=== PATIENT | male | born 1965 | race American Indian/Alaskan Native ===

== ENCOUNTER 2017-10-04 10:22 | Inpatient (IN) | payer MEDICAID, OTHER ==
[2017-10-04 10:29] VITALS: BMI 26.9
--- NOTE | 2017-10-04 11:08 | ED PDOC ---
Arrival/HPI - General Chief Complaint: Seizure Time Seen by Provider: 10/04/17 10:28 Historian: Patient, Family (twin brother), EMS - History of Present Illness Narrative History of Present Illness (Text): 10/04/17 10:45 A 52 year old male, whose past medical history includes seizure disorder and COPD, presents to the emergency department s/p seizure witnessed by brother, duration 2 minutes. Patient reports last seizure episode was 3 months ago. Patient is uncertain what caused his seizure. Here in the ER, patient currently experiencing headache. Per EMS, patient's seizure was witnessed by brother, who stated episode lasted approximately 2 minutes. Patient denies any fever, cough, weakness/numbness, sensation of tongue bite, self-urination/defecation, or any other complaints. Also, patient denies taking any medications for seizure in the past or at this time. No PMD Past Medical History - Provider Review Nursing Documentation Reviewed: Yes - Pulmonary Hx Respiratory Disorders: Yes Hx Chronic Obstructive Pulmonary Disease (COPD): Yes - Neurological Hx Neurological Disorder: Yes Hx Seizures: Yes - Renal Hx Renal Disorder: No - Endocrine/Metabolic Hx Endocrine Disorders: No - Hematological/Oncological Hx Blood Disorders: No - Integumentary Hx Dermatological Disorder: No - Musculoskeletal/Rheumatological Hx Musculoskeletal Disorders: No - Gastrointestinal Hx Gastrointestinal Disorders: No - Genitourinary/Gynecological Hx Genitourinary Disorders: No - Psychiatric Hx Psychophysiologic Disorder: No Hx Substance Use: No - Anesthesia Hx Anesthesia: No Family/Social History - Physician Review Nursing Documentation Reviewed: Yes Family/Social History: No Known Family HX Smoking Status: Light Smoker < 10 Cigarettes Daily Hx Alcohol Use: No Hx Substance Use: No Allergies/Home Meds Allergies/Adverse Reactions: Allergies No Known Allergies Allergy (Verified 10/04/17 10:28) Home Medications: Home Meds Medication Instructions Recorded Confirmed No Known Home Med 10/04/17 10/04/17 Physical Exam Vital Signs Reviewed: Yes Vital Signs Temp Pulse Resp BP Pulse Ox 10/04/17 11:26 98.3 F 86 18 123/74 95 10/04/17 10:30 98.3 F 90 18 123/74 96 Temperature: Afebrile Blood Pressure: Normal Pulse: Regular Respiratory Rate: Normal Appearance: Positive for: Other (patient appears tired, but is arousable to voice.) Pain Distress: None Mental Status: Positive for: Alert and Oriented X 3 Finger Stick Blood Glucose: 180 - Systems Exam Head: Present: Atraumatic, Normocephalic Pupils: Present: PERRL Extroacular Muscles: Present: EOMI Conjunctiva: Present: Normal Mouth: Present: Moist Mucous Membranes, Normal Tounge Neck: Present: Normal Range of Motion Respiratory/Chest: Present: Clear to Auscultation, Good Air Exchange. No: Respiratory Distress, Accessory Muscle Use Cardiovascular: Present: Regular Rate and Rhythm, Normal S1, S2. No: Murmurs Abdomen: No: Tenderness, Distention, Peritoneal Signs Back: Present: Normal Inspection Upper Extremity: Present: Normal Inspection. No: Cyanosis, Edema Lower Extremity: Present: Normal Inspection. No: Edema Neurological: Present: GCS=15, CN II-XII Intact, Speech Normal, Motor Func Grossly Intact, Normal Sensory Function, Other (negative Brudinski, negative kernigs) Skin: Present: Warm, Dry, Normal Color. No: Rashes Psychiatric: Present: Alert, Oriented x 3, Normal Insight, Normal Concentration Medical Decision Making ED Course and Treatment: 10/04/17 10:50 Impression: 52 year old male with witnessed seizure episode, witnessed by his twin brother while at home. Physical exam shows patient appears tired but arousable to voice; neurological examination normal; no signs of incontinence; no signs of bite costa to tongue; no other acute findings on examination. Differential Diagnosis included but are not limited to: Seizure, h/o Seizure r/ o Electrolyte Abnormality r/o ICH Plan: -- EKG -- Head CT -- Labs -- Urinalysis -- Reassess and disposition Prior Visits: Notes and results from previous visits were reviewed. Patient was last seen in the emergency department on Progress Notes: EKG: Ordered, reviewed, and independently interpreted the EKG. Rate : 92 BPM Rhythm : NSR Interpretation : No ST-segment elevations or depressions, no T-wave inversions, normal intervals. Comparison : No previous EKG for comparison. 10/04/17 11:21 Patient is noted to have an elevated WBC. Currently in CT. Will place on isolation by Stefanie Navarrete for precautions. 10/04/17 11:43 Patient signed out to Dr. Marie to f/u CT, UA, and CXR reevaluate and disposition. - Lab Interpretations Lab Results: 10/04/17 10:44 10/04/17 10:44 Lab Results 10/04/17 10:55: POC Glucose (mg/dL) 180 H 10/04/17 10:44: PT 13.7 H, INR 1.19, APTT 29.9 10/04/17 10:44: Alcohol, Quantitative < 10 10/04/17 10:44: Sodium 140, Potassium 3.8, Chloride 99, Carbon Dioxide 21, Anion Gap 24 H, BUN 11, Creatinine 1.0, Est GFR ( Amer) > 60, Est GFR ( Non-Af Amer) > 60, Random Glucose 167 H, Calcium 9.9, Magnesium 2.1, Total Bilirubin 0.9, AST 37, ALT 28, Alkaline Phosphatase 114, Total Protein 8.7 H, Albumin 4.9 H, Globulin 3.8, Albumin/Globulin Ratio 1.3 10/04/17 10:44: WBC 29.3 H*, RBC 4.98, Hgb 14.4, Hct 43.4, MCV 87.1, MCH 28.9, MCHC 33.2, RDW 12.4, Plt Count 227, MPV 9.1, Gran % 94.0 H, Lymph % (Auto) 2.8 L , [place] % (Auto) 3.1, Eos % (Auto) 0.0 L, Baso % (Auto) 0.1, Gran # 27.54 H, Lymph # (Auto) 0.8 L, [place] # (Auto) 0.9 H, Eos # (Auto) 0.0, Baso # (Auto) 0.04 , Neutrophils % (Manual) Pending, Lymphocytes % (Manual) Pending, Monocytes % ( Manual) Pending - RAD Interpretation Radiology Orders: 10/04/17 10:45 HEAD W/O CONTRAST [CT] Stat - Scribe Statement The provider has reviewed the documentation as recorded by the Vanessa Feliciano Provider Scribe Attestation: All medical record entries made by the Scribe were at my direction and personally dictated by me. I have reviewed the chart and agree that the record accurately reflects my personal performance of the history, physical exam, medical decision making, and the department course for this patient. I have also personally directed, reviewed, and agree with the discharge instructions and disposition. Disposition/Present on Arrival - Present on Arrival Any Indicators Present on Arrival: No History of DVT/PE: No History of Uncontrolled Diabetes: No Urinary Catheter: No History of Decub. Ulcer: No History Surgical Site Infection Following: None - Disposition Have Diagnosis and Disposition been Completed?: No Diagnosis: Seizure Disposition Time: 11:45 Condition: FAIR Forms: [employer] (Greek)
[2017-10-04 11:10] LABS: BASO # 0.04 K/mm3 (0.0-2.0); BASO % 0.1 % (0.0-3.0); GRAN # 27.54 (1.4-6.5); HEMOGLOBIN 14.4 g/dL (14.0-18.0); LYMPH # 0.8 (1.2-3.4); LYMPH % 2.8 % (22.0-35.0); MEAN CELL VOLUME 87.1 fl (80.0-105.0); MEAN CORPUSCULAR HEMOGLOBIN 28.9 pg (25.0-35.0); MEAN CORPUSCULAR HGB CONC 33.2 g/dl (31.0-37.0); MEAN PLATELET VOLUME 9.1 fl (7.0-11.0); MONO # 0.9 (0.1-0.6); MONO % 3.1 % (1.0-6.0); PLATELET COUNT 227 10^3/uL (120.0-450.0); RBC 4.98 10^6/uL (3.5-6.1); RED CELL DISTRIBUTION WIDTH 12.4 % (11.5-14.5)
[2017-10-04 11:18] LABS: WHITE BLOOD COUNT 29.3 10^3/ul (4.5-11.0)
[2017-10-04 11:20] LABS: ALB/GLOB RATIO 1.3 (1.1-1.8); ALBUMIN 4.9 g/dL (3.0-4.8); ALT/SGPT 28 U/L (7-56); AST/SGOT 37 U/L (17-59); BLOOD UREA NITROGEN 11 mg/dL (7-21); CALCIUM 9.9 mg/dL (8.4-10.5); GFR NON-AFRICAN AMERICAN > 60
[2017-10-04 11:39] LABS: INR 1.19; PARTIAL THROMBOPLASTIN TIME 29.9 Seconds (25.1-36.5); PROTHROMBIN TIME 13.7 SECONDS (9.4-12.5)
--- NOTE | 2017-10-04 11:50 | ED PDOC ---
Physical Exam Vital Signs Temp Pulse Resp BP Pulse Ox 10/04/17 17:00 79 18 115/79 96 10/04/17 14:36 86 18 106/65 96 10/04/17 12:43 75 18 118/69 96 10/04/17 11:26 98.3 F 86 18 123/74 95 10/04/17 10:30 98.3 F 90 18 123/74 96 Finger Stick Blood Glucose: 180 Medical Decision Making ED Course and Treatment: 10/04/17 11:46 Patient endorsed to me by Dr. Petit. Patient is a 52 year old male, whose past medical history includes seizure disorder and chronic obstructive pulmonary disease, presents to the emergency department s/p seizure witnessed by brother, duration 2 minutes. 10/04/17 12:36 CXR reviewed with no acute intrathoracic abnormalities. Pending CTH. 10/04/17 13:09 Dictator: Edmond Peralta MD Procedure: Chest X-ray Impression: No active disease Dictator: Adi Quiroz MD Procedure: CT Head without contrast Impression: Unremarkable noncontrast CT of the Head. 10/04/17 14:[address] Boyd, who is aware and agrees with the Emergency Department management plan and requests patient be given 1000 mg of kepra IV, 500 mg BID, agrees with plan for Lumbar puncture and will consent patient. 10/04/17 15:55 Multiple attempts of CSF LP unsuccessful. Patient is intolerant of procedure. Anitbiotics have been ordered. Case discussed with Dr. Best who accepts patient unto her service. I will attempt to contact Dr. Haddad(radiology) for IR guided treatment. 10/04/17 16:[address] Bautista(anesthesiology) who requests Dr. Boyd(neurology) to attempt LP and directly request anesthesia services. Spoke to Dr. Fracisco Haddad who states that he doesn't perform LP guided treatments. Infomation relayed to Dr. Best. - Lab Interpretations Microbiology Results: Microbiology Results 10/04/17 15:40 Blood Blood Culture - Preliminary NO GROWTH AFTER 24 HOURS Lab Results: 10/04/17 10:44 10/04/17 10:44 Lab Results 10/04/17 13:00: Urine Opiates Screen Negative, Urine Methadone Screen Negative, Ur Barbiturates Screen Negative, Ur Phencyclidine Scrn Negative, Ur Amphetamines Screen Negative, U Benzodiazepines Scrn Negative, U Oth Cocaine Metabols Negative, U Cannabinoids Screen Positive H 10/04/17 13:00: Urine Color Yellow, Urine Appearance Clear, Urine pH 6.0, Ur Specific [place] >= 1.030, Urine Protein 100 H, Urine Glucose (UA) Negative, Urine Ketones Negative, Urine Blood Moderate H, Urine Nitrate Negative, Urine Bilirubin Negative, Urine Urobilinogen 0.2, Ur Leukocyte Esterase Negative, Urine RBC 1 - 3, Urine WBC 0 - 2, Ur Epithelial Cells 0 - 2, Urine Bacteria Few 10/04/17 10:55: POC Glucose (mg/dL) 180 H 10/04/17 10:44: PT 13.7 H, INR 1.19, APTT 29.9 10/04/17 10:44: Alcohol, Quantitative < 10 10/04/17 10:44: Sodium 140, Potassium 3.8, Chloride 99, Carbon Dioxide 21, Anion Gap 24 H, BUN 11, Creatinine 1.0, Est GFR ( Amer) > 60, Est GFR ( Non-Af Amer) > 60, Random Glucose 167 H, Calcium 9.9, Magnesium 2.1, Total Bilirubin 0.9, AST 37, ALT 28, Alkaline Phosphatase 114, Total Protein 8.7 H, Albumin 4.9 H, Globulin 3.8, Albumin/Globulin Ratio 1.3 10/04/17 10:44: WBC 29.3 H*, RBC 4.98, Hgb 14.4, Hct 43.4, MCV 87.1, MCH 28.9, MCHC 33.2, RDW 12.4, Plt Count 227, MPV 9.1, Gran % 94.0 H, Lymph % (Auto) 2.8 L , [place] % (Auto) 3.1, Eos % (Auto) 0.0 L, Baso % (Auto) 0.1, Gran # 27.54 H, Lymph # (Auto) 0.8 L, [place] # (Auto) 0.9 H, Eos # (Auto) 0.0, Baso # (Auto) 0.04 , Neutrophils % (Manual) 92 H, Band Neutrophils % 5 H, Lymphocytes % (Manual) 1 L, Monocytes % (Manual) 2, Platelet Evaluation Normal - RAD Interpretation Radiology Orders: 10/04/17 10:45 HEAD W/O CONTRAST [CT] Stat 10/04/17 11:59 CXR [CHEST PORTABLE] [RAD] Stat - Medication Orders Current Medication Orders: Discontinued Medications Acetaminophen (Tylenol 325mg Tab) 325 mg PO Q6H PRN PRN Reason: Fever >100.4 F Divalproex Sodium (Depakote Dr(*Bid*)) 500 mg PO BID GABY PRN Reason: Protocol Divalproex Sodium (Depakote Dr(*Bid*)) 1,000 mg PO ONCE ONE Stop: 10/05/17 13:38 Last Admin: 10/05/17 16:27 Dose: 1,000 mg Metoclopramide HCl 10 mg/ (Sodium Chloride) 52 mls @ 200 mls/hr IV STAT STA Stop: 10/04/17 13:49 Last Admin: 10/04/17 14:10 Dose: 200 mls/hr eMAR Start Stop Document 10/04/17 14:10 LA (Rec: 10/04/17 14:25 LA [id number]) Intravenous Solution Start Date 10/04/17 Start Time 14:25 End Date 10/04/17 End time 14:41 Total Infusion Time 16 Sodium Chloride (Sodium Chloride 0.9%) 1,000 mls @ 999 mls/hr IV .Q1H1M STA Stop: 10/04/17 14:34 Last Admin: 10/04/17 13:42 Dose: 999 mls/hr eMAR Start Stop Document 10/04/17 13:42 LA (Rec: 10/04/17 13:42 LA [id number]) Intravenous Solution Start Date 10/04/17 Start Time 13:42 End Date 10/04/17 End time 14:43 Total Infusion Time 61 Levetiracetam 1,000 mg/ Sodium (Chloride) 110 mls @ 440 mls/hr IV ONCE ONE Stop: 10/04/17 15:55 Last Admin: 10/04/17 16:13 Dose: 440 mls/hr eMAR Start Stop Document 10/04/17 16:13 LA (Rec: 10/04/17 16:14 LA [id number]) Intravenous Solution Start Date 10/04/17 Start Time 16:13 End Date 10/04/17 End time 16:28 Total Infusion Time 15 Ceftriaxone Sodium (Rocephin 2 Gm Ivpb) 2 gm in 100 mls @ 100 mls/hr IVPB STAT STA PRN Reason: Protocol Stop: 10/04/17 16:42 Last Admin: 10/04/17 16:37 Dose: 100 mls/hr eMAR Start Stop Document 10/04/17 16:37 LA (Rec: 10/04/17 16:45 LA [id number]) Intravenous Solution Start Date 10/04/17 Start Time 16:45 End Date 10/04/17 End time 17:45 Total Infusion Time 60 Sodium Chloride (Sodium Chloride 0.9%) 1,000 mls @ 999 mls/hr IV .Q1H1M STA Stop: 10/04/17 16:42 Last Admin: 10/04/17 17:30 Dose: 999 mls/hr eMAR Start Stop Document 10/04/17 17:30 LA (Rec: 10/04/17 17:30 LA [id number]) Intravenous Solution Start Date 10/04/17 Start Time 17:30 End Date 10/04/17 End time 18:31 Total Infusion Time 61 Vancomycin HCl (Vancomycin 1gm) 1 gm in 250 mls @ 167 mls/hr IVPB STAT STA PRN Reason: Protocol Stop: 10/04/17 17:13 Last Admin: 10/04/17 18:14 Dose: 167 mls/hr eMAR Start Stop Document 10/04/17 18:14 LA (Rec: 10/04/17 18:19 LA [id number]) Intravenous Solution Start Date 10/04/17 Start Time 18:19 End Date 10/04/17 End time 19:49 Total Infusion Time 90 Sodium Chloride (Sodium Chloride 0.9%) 1,000 mls @ 100 mls/hr IV .Q10H STA Stop: 10/05/17 03:32 Ceftriaxone Sodium (Rocephin 2 Gm Ivpb) 2 gm in 100 mls @ 100 mls/hr IVPB DAILY GABY PRN Reason: Protocol Last Admin: 10/05/17 09:32 Dose: 100 mls/hr eMAR Start Stop Document 10/05/17 09:32 MV (Rec: 10/05/17 09:33 MV [id number]) Intravenous Solution Start Date 10/05/17 Start Time 09:32 Vancomycin HCl (Vancomycin 1gm) 1 gm in 250 mls @ 167 mls/hr IVPB Q12H GABY PRN Reason: Protocol Last Admin: 10/05/17 09:32 Dose: 167 mls/hr eMAR Start Stop Document 10/05/17 09:32 MV (Rec: 10/05/17 09:32 MV [id number]) Intravenous Solution Start Date 10/05/17 Start Time 09:32 Levetiracetam (Keppra) 500 mg PO BID GABY Levetiracetam (Keppra) 500 mg PO BID GABY Last Admin: 10/05/17 09:32 Dose: 500 mg Pantoprazole Sodium (Protonix Ec Tab) 40 mg PO 0600 GABY Last Admin: 10/05/17 06:05 Dose: 40 mg Pneumococcal Polyvalent Vaccine (Pneumovax 23 Vaccine) 0.5 ml IM .ONCE ONE Stop: 10/04/17 21:40 - Scribe Statement The provider has reviewed the documentation as recorded by the Vanessa Geller All medical record entries made by the Arnolibchelo were at my direction and personally dictated by me. I have reviewed the chart and agree that the record accurately reflects my personal performance of the history, physical exam, medical decision making, and the department course for this patient. I have also personally directed, reviewed, and agree with the discharge instructions and disposition. Disposition/Present on Arrival - Present on Arrival Any Indicators Present on Arrival: No History of DVT/PE: No History of Uncontrolled Diabetes: No Urinary Catheter: No History of Decub. Ulcer: No History Surgical Site Infection Following: None - Disposition Have Diagnosis and Disposition been Completed?: No Diagnosis: Seizure, Leukocytosis Disposition: HOSPITALIZED Disposition Time: 15:55 Isolation: Contact, Airborne Patient Plan: Admission Condition: FAIR
[2017-10-04 11:57] LABS: BAND 5 % (0-2); LYMPHOCYTE 1 % (22.0-35.0); MONOCYTE 2 % (1.0-6.0); NEUTROPHIL 92 % (50.0-70.0); PLATELET ESTIMATE NORMAL (NORMAL)
--- NOTE | 2017-10-04 12:29 | RAD ---
Date of service: 10/04/2017 HISTORY: seizure COMPARISON: No prior. FINDINGS: LUNGS: No active pulmonary disease. PLEURA: No significant pleural effusion identified, no pneumothorax apparent. CARDIOVASCULAR: Mild cardiomegaly OSSEOUS STRUCTURES: No significant abnormalities. VISUALIZED UPPER ABDOMEN: Normal. OTHER FINDINGS: None. IMPRESSION: No active disease.
--- NOTE | 2017-10-04 12:57 | CT ---
Date of service: 10/04/2017 PROCEDURE: CT HEAD WITHOUT CONTRAST. HISTORY: seizure COMPARISON: None available. TECHNIQUE: Axial computed tomography images were obtained through the head/brain without intravenous contrast. Radiation dose: Total exam DLP = 945.47 mGy-cm. This CT exam was performed using one or more of the following dose reduction techniques: Automated exposure control, adjustment of the mA and/or kV according to patient size, and/or use of iterative reconstruction technique. FINDINGS: Limitations: Motion artifaced exam. The patient was recalled for added imaging insert into the initial series performed. HEMORRHAGE: No intracranial hemorrhage. BRAIN: Normal quach-white matter differentiation and density are appreciated throughout the cerebrum and cerebellum with the brainstem appearing unremarkable as well. There is no mass effect. There is no suspicious extra-axial fluid collection and the midline brain anatomy appears diffusely unremarkable. VENTRICLES: Unremarkable. No hydrocephalus. CALVARIUM: No destructive bony lesion or displaced fracture identified including through the skullbase. PARANASAL SINUSES: Unremarkable as visualized. No significant inflammatory changes. MASTOID AIR CELLS: Unremarkable as visualized. No inflammatory changes. OTHER FINDINGS: Note is made of a midline parieto-occipital scalp lipoma measuring 4.7 x 1.5 x 4.5 cm. IMPRESSION: Unremarkable noncontrast CT of the Head.
[2017-10-04 13:26] LABS: URINE BILIRUBIN NEGATIVE (NEGATIVE); URINE BLOOD MODERATE (NEGATIVE); URINE GLUCOSE (UA) NEGATIVE (NEGATIVE); URINE LEUKOCYTE ESTERASE NEGATIVE Leu/uL (NEGATIVE); URINE PROTEIN 100 mg/dL (<30 mg/dL); URINE UROBILINOGEN 0.2 E.U./dL (<1 E.U./dL)
[2017-10-04 13:28] LABS: URINE APPEARANCE CLEAR (CLEAR); URINE COLOR YELLOW (YELLOW)
[2017-10-04] MEDS ORDERED: Sodium Chloride 0.9% 1,000 ML IV STA ×3 (13:34→17:33)
[2017-10-04 13:44] LABS: URINE BACTERIA FEW (NEG); URINE EPITHELIAL CELLS 0 - 2 /hpf (0-5); URINE WBC 0 - 2 /hpf (0-6)
[2017-10-04 13:49] LABS: BARBITURATES, UR NEGATIVE (NEGATIVE); BENZODIAZEPINES, UR NEGATIVE (NEGATIVE); OPIATES, UR NEGATIVE (NEGATIVE); PHENCYCLIDINE, UR NEGATIVE (NEGATIVE)
[2017-10-04] MEDS ORDERED: Lidocaine Hydrochloride 1% 10 ML ONE (15:16)
[2017-10-04] MEDS ORDERED: levETIRAcetam 1,000 MG in Sodium Chloride 0.9% 100 ML IV ONE (15:41)
[2017-10-04] MEDS ORDERED: cefTRIAXone 2 GM IN NS 2 GM/100 ML BAG IVPB STA (15:43)
[2017-10-04] MEDS ORDERED: Vancomycin 1gm in NS 250ml 1 GM/250 ML BAG IVPB STA (15:44)
--- NOTE | 2017-10-04 17:41 | CP.PCM.HP ---
History of Present Illness - History of Present Illness History of Present Illness: Corey Ford D.O PGY-1, Internal Medicine H & P for Dr. Best CC: Headache and dizziness HPI: Patient is a 52 year old male with past medical history of seizure disorder ( not on medication), HTN, and COPD presenting to the emergency department with headache and dizziness. Patient states that he woke up this morning with a headache and also feeling more tired than usual. Patient remembers taking 2 Tylenol pills for his headache this morning but later woke up in the ambulance. Patient cannot recall what happened before waking up in the ambulance. Patient was diagnosed with seizure disorder last year and was given medications but never took them. His last seizure episode was 3 months ago. As per ED note, patient's brother witness his seizure episode that lasted for 2 minutes. Patient denies any fever, cough, weakness/numbness, sensation of tongue bite, self-urination/defecation, recent travels, any sick contacts, chest pain, shortness of breath, abdominal pain, or urinary symptoms. In ED: was given IV Keppra and IV Ceftriaxone 12 point ROS negative except as indicated in HPI Past medical history: HTN, COPD, seizures (not on medication) Surgical History: denies Allergies: NKDA Social History: Denies alcohol and drug use. Smokes 7 cigarettes per day for 7 years, smokes marijuana occasionally. 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 Family History: Mother- HTN, Father- does not know Medications: Amlodipine PMD: none Neurologist: Cannot recall Pharmacy: patient states [facility] (called and no patient name at this pharmacy) Present on Admission - Present on Admission Any Indicators Present on Admission: No History of DVT/PE: No History of Uncontrolled Diabetes: No Urinary Catheter: No Decubitus Ulcer Present: No Past Patient History - Past Social History Smoking Status: Light Smoker < 10 Cigarettes Daily - PULMONARY Hx Respiratory Disorders: Yes Hx Chronic Obstructive Pulmonary Disease (COPD): Yes - NEUROLOGICAL Hx Neurological Disorder: Yes Hx Seizures: Yes - RENAL Hx Chronic Kidney Disease: No - ENDOCRINE/METABOLIC Hx Endocrine Disorders: No - HEMATOLOGICAL/ONCOLOGICAL Hx Blood Disorders: No - INTEGUMENTARY Hx Dermatological Problems: No - MUSCULOSKELETAL/RHEUMATOLOGICAL Hx Musculoskeletal Disorders: No - GASTROINTESTINAL Hx Gastrointestinal Disorders: No - GENITOURINARY/GYNECOLOGICAL Hx Genitourinary Disorders: No - PSYCHIATRIC Hx Psychophysiologic Disorder: No Hx Substance Use: No - SURGICAL HISTORY Hx Surgeries: No - ANESTHESIA Hx Anesthesia: No Meds Allergies/Adverse Reactions: Allergies Allergy/AdvReac Type Severity Reaction Status Date / Time No Known Allergies Allergy Verified 10/04/17 18:14 Physical Exam - Constitutional Appears: No Acute Distress Additional comments: Appears Lethargic - Head Exam Head Exam: ATRAUMATIC Additional comments: Lipoma present in the posterior of the head - Eye Exam Eye Exam: Normal appearance, PERRL. absent: Scleral icterus - ENT Exam ENT Exam: Mucous Membranes Moist - Neck Exam Neck exam: Positive for: Full Rom, Normal Inspection. Negative for: Tenderness - Respiratory Exam Respiratory Exam: Clear to Auscultation Bilateral. absent: Rales, Rhonchi, Wheezes, Respiratory Distress, Stridor - Cardiovascular Exam Cardiovascular Exam: REGULAR RHYTHM, +S1, +S2. absent: Gallop, Rubs, Systolic Murmur - GI/Abdominal Exam GI & Abdominal Exam: Normal Bowel Sounds, Soft. absent: Guarding, Tenderness - Extremities Exam Extremities exam: Positive for: full ROM, normal inspection. Negative for: calf tenderness, joint swelling, pedal edema - Neurological Exam Neurological exam: Alert, CN II-XII Intact, Normal Gait, Oriented x3, Reflexes Normal Additional comments: Speech normal, negative Brudinski, negative kernigs, no focal neurological deficits. Muscle strength 5/5 and sensations intact on bilateral upper and lower extremities. - Psychiatric Exam Psychiatric exam: Normal Affect, Normal Mood - Skin Skin Exam: Dry, Intact, Normal Color, Warm Results - Vital Signs Recent Vital Signs: Last Vital Signs Temp 98.3 F 10/04/17 11:26 Pulse 79 10/04/17 17:00 Resp 18 10/04/17 17:00 BP 115/79 10/04/17 17:00 Pulse Ox 96 10/04/17 17:00 - Labs Result Diagrams: 10/04/17 10:44 10/04/17 10:44 Assessment & Plan - Assessment and Plan (Free Text) Assessment: chris is a 52 year old male with past medical history of seizure disorder (not on medication), HTN, and COPD presenting to the emergency department with headache and dizziness. Plan: Headache and dizziness - Most likely due to post-ictal state 2/2 a seizure episode, need to rule out acute meningitis - WBC: 29.3 - Neutrophils manual count: 94%, Bands: 5%, Neutrophils: 27,540 - CT head: unremarkable - Patient is afebrile - Patient is on airborne precautions - Neurology consulted, Dr. Boyd - ID consulted, Dr. Feldman - EKG: NSR - CXR: no active disease - [employer], ERP, HIV, Procalcitonin ordered - Blood and urine cultures ordered - Started Keppra 500mg PO BID - Started Tylenol PRN - fevers - IVF fluids: NS @ 100mLs/hour - Fall and seizure protocols - Negative Brudinski's sign, negative Kernig sign History of hypertension - On Amlodipine at home - Hold home antihypertensive medication at this time DVT/GI prophylaxis: SCD's and protonix Patient case reviewed with and plan approved by attending physician, Dr. Best
[2017-10-04] MEDS ORDERED: levETIRAcetam Solution 100 MG/ML BOTTLE PO SCH (18:00)
[2017-10-04] MEDS: levETIRAcetam 500 mg/5ml UD cups PO SCH (18:21)
--- NOTE | 2017-10-04 19:08 | CARD ---
APPROVED REPORT Date of service: 10/04/2017 EKG Measurement Heart [id number] <Conclusion> Normal sinus rhythm Normal ECG
[2017-10-04] MEDS ORDERED: Pneumococcal 23-Valent Vaccine IM ONE (21:39)
[2017-10-05 00:28] VITALS: RESP 20
[2017-10-05] MEDS: Vancomycin 1gm in NS 250ml 1 GM/250 ML BAG IVPB SCH ×2 (02:24→09:32)
[2017-10-05] MEDS ORDERED: Pantoprazole 40 mg EC Tab PO SCH (06:00)
[2017-10-05 06:46] LABS: ALB/GLOB RATIO 1.1 (1.1-1.8); ALBUMIN 3.6 g/dL (3.0-4.8); ALT/SGPT 38 U/L (7-56); AST/SGOT 39 U/L (17-59); BLOOD UREA NITROGEN 9 mg/dL (7-21); CALCIUM 8.5 mg/dL (8.4-10.5); GFR NON-AFRICAN AMERICAN > 60
[2017-10-05 06:48] LABS: BASO # 0.03 K/mm3 (0.0-2.0); BASO % 0.2 % (0.0-3.0); EOS # 0.1 (0.0-0.7); EOS % 0.5 % (1.5-5.0); GRAN # 14.72 (1.4-6.5); GRAN % 89.8 % (50.0-68.0); HEMOGLOBIN 12.1 g/dL (14.0-18.0); LYMPH # 0.8 (1.2-3.4); LYMPH % 4.6 % (22.0-35.0); MEAN CELL VOLUME 86.1 fl (80.0-105.0); MEAN CORPUSCULAR HEMOGLOBIN 27.9 pg (25.0-35.0); MEAN CORPUSCULAR HGB CONC 32.4 g/dl (31.0-37.0); MEAN PLATELET VOLUME 9.1 fl (7.0-11.0); MONO # 0.8 (0.1-0.6); MONO % 4.9 % (1.0-6.0); RBC 4.33 10^6/uL (3.5-6.1); RED CELL DISTRIBUTION WIDTH 12.4 % (11.5-14.5); WHITE BLOOD COUNT 16.4 10^3/ul (4.5-11.0)
[2017-10-05] MEDS: levETIRAcetam 500 mg/5ml UD cups PO SCH (09:32)
[2017-10-05] MEDS ORDERED: cefTRIAXone 2 GM IN NS 2 GM/100 ML BAG IVPB SCH (10:00)
--- NOTE | 2017-10-05 11:48 | CP.PCM.PN ---
Subjective - Date & Time of Evaluation Date of Evaluation: 10/05/17 Time of Evaluation: 07:00 - Subjective Subjective: Internal Medicine Progress Note for Dr. Estephania Agarwal PGY1 52M seen and evaluated at bedside this morning. No acute events overnight. Patient states symptoms of leg heaviness and headache have now resolved. Tolerating his diet and no difficulty with ambulation. He denies any dizziness, confusion, fever, chills, shortness of breath, chest pain, palpitations, nausea , vomiting, diarrhea, or abdominal pain. Objective - Vital Signs/Intake and Output Vital Signs (last 24 hours): Temp Pulse Resp BP Pulse Ox 99.0 F 81 20 126/82 96 10/05/17 07:15 10/05/17 07:15 10/05/17 07:15 10/05/17 07:15 10/05/17 07:15 Intake and Output: 10/05/17 10/05/17 06:59 18:59 Intake Total 1270 Balance 1270 - Medications Medications: Current Medications Acetaminophen (Tylenol 325mg Tab) 325 mg PO Q6H PRN PRN Reason: Fever >100.4 F Ceftriaxone Sodium (Rocephin 2 Gm Ivpb) 2 gm in 100 mls @ 100 mls/hr IVPB DAILY GABY PRN Reason: Protocol Last Admin: 10/05/17 09:32 Dose: 100 mls/hr Vancomycin HCl (Vancomycin 1gm) 1 gm in 250 mls @ 167 mls/hr IVPB Q12H GABY PRN Reason: Protocol Last Admin: 10/05/17 09:32 Dose: 167 mls/hr Levetiracetam (Keppra) 500 mg PO BID [facility] Last Admin: 10/05/17 09:32 Dose: 500 mg Pantoprazole Sodium (Protonix Ec Tab) 40 mg PO 0600 G[facility] Last Admin: 10/05/17 06:05 Dose: 40 mg - Labs Labs: 10/05/17 05:45 10/05/17 05:30 PT 13.7 SECONDS (9.4-12.5) H 10/04/17 10:44 INR 1.19 10/04/17 10:44 APTT 29.9 Seconds (25.1-36.5) 10/04/17 10:44 - Constitutional Appears: Well, Non-toxic, No Acute Distress - Head Exam Head Exam: ATRAUMATIC, NORMAL INSPECTION, NORMOCEPHALIC - Eye Exam Eye Exam: EOMI Pupil Exam: PERRL - ENT Exam ENT Exam: Mucous Membranes Moist - Respiratory Exam Respiratory Exam: Clear to Ausculation Bilateral, NORMAL BREATHING PATTERN - Cardiovascular Exam Cardiovascular Exam: REGULAR RHYTHM, +S1, +S2. absent: Murmur - GI/Abdominal Exam GI & Abdominal Exam: Soft, Normal Bowel Sounds. absent: Tenderness - Extremities Exam Extremities Exam: absent: Calf Tenderness, Pedal Edema, Tenderness - Neurological Exam Neurological Exam: Alert, Awake, CN II-XII Intact, Normal Gait, Oriented x3 Neuro motor strength exam: Left Upper Extremity: 5, Right Upper Extremity: 5, Left Lower Extremity: 5, Right Lower Extremity: 5 - Psychiatric Exam Psychiatric exam: Normal Affect, Normal Mood - Skin Skin Exam: Dry, Intact, Normal Color, Warm Assessment and Plan - Assessment and Plan (Free Text) Assessment: 52M, with a past medical history of seizure disorder (not currently taking medications), hypertension, and COPD, presented s/p seizure witnessed by brother in law. Plan: 1. Headache and dizziness - likely secondary to a post-ictal state vs. meningitis - Pt has history of seizures and has not been taking medication - Start Depakote, discontinue Keppra 500mg BID - Continue Vancomycin 1gm Q12H, Rocephin 2gm - UA positive for cannabinoids which lowers seizure threshold - droplet precautions - fall precautions - seizure precautions - CT head negative - CT head w/ contrast: normal - f/u blood, urine cultures - f/u HIV, VDRL, and cryptococcus studies - Neurology, Dr. Boyd consulted, recommendations appreciated - ID, Dr. Prado consulted, recommendations appreciated 2. Hx of HTN - Home medication amlodipine on hold, patient is currently normotensive - Continue to monitor 3. Hx of Substance Abuse - UA positive for cannabinoids - Encouraged cessation especially with seizure disorder as this lowers threshold for seizures GI: Protonix DVT: SCDs Diet: HHD Case reviewed and discussed with Dr. Estephania Agarwal PGY1
[2017-10-05] MEDS ORDERED: Iohexol 350 MG/100 ML VIAL ONE (12:40)
[2017-10-05] MEDS ORDERED: Divalproex 500 mg DR(BID formulation) PO ONE (13:37)
--- NOTE | 2017-10-05 13:55 | CT ---
Date of service: 10/05/2017 PROCEDURE: CT HEAD WITH CONTRAST HISTORY: rule out mass COMPARISON: None available. TECHNIQUE: Axial computed tomography images were obtained through the head/brain with intravenous contrast. Contrast dose: 100 cc of Omni 350 Radiation dose: Total exam DLP = 1124 mGy-cm. This CT exam was performed using one or more of the following dose reduction techniques: Automated exposure control, adjustment of the mA and/or kV according to patient size, and/or use of iterative reconstruction technique. FINDINGS: HEMORRHAGE: No intracranial hemorrhage. BRAIN: No mass, mass effect or edema. No abnormal intracranial enhancement. No atrophy or chronic microvascular ischemic changes. VENTRICLES: Unremarkable. No hydrocephalus. CALVARIUM: Unremarkable. PARANASAL SINUSES: Unremarkable as visualized. No significant inflammatory changes. MASTOID AIR CELLS: Unremarkable as visualized. No mastoid effusion. OTHER FINDINGS: None. IMPRESSION: Normal contrast enhanced CT of the head.
[2017-10-05 16:23] VITALS: BP 123/79; PULSE 64; TEMP 98.4; O2SAT 97
[2017-10-05] MEDS ORDERED: Divalproex 500 mg DR(BID formulation) PO SCH (18:00)
--- NOTE | 2017-10-05 22:13 | CP.PCM.CON ---
History of Present Illness - History of Present Illness History of Present Illness: 52 year old male with PMH of seizure disorder, HTN, COPD came in to [facility] because headache and dizziness in the morning and then the next thing he remembers is that he is in an ambulance and was told that he may have had a seizure. He denies fever or chills, no photophobia, no neck pain, no nausea or vomiting, no chest pain, no SOB, no cough or rhinorrhea, no abdominal pain, no sore throat, no skin rash or pruritus, denies animal contacts, no insect or tick bites, no diarrhea, no dysuria, denies recent travel outside of [place] in the past 3 months, denies antibiotic use in the past 3 months. He was noted to have low grade temperatures in the ED but not outright fever and leukocytosis. Infectious Diseases consult is requested to further evaluate and manage. Review of Systems - Review of Systems All systems: reviewed and no additional remarkable complaints except (as per HPI ) Past Patient History - Past Social History Smoking Status: Current Some Days Smoker - CARDIAC Hx Cardiac Disorders: Yes Hx Hypertension: Yes - PULMONARY Hx Respiratory Disorders: Yes (SMOKES CIGARETTES AND MARIJUANA) Hx Chronic Obstructive Pulmonary Disease (COPD): Yes - NEUROLOGICAL Hx Neurological Disorder: Yes Hx Seizures: Yes - RENAL Hx Chronic Kidney Disease: No - ENDOCRINE/METABOLIC Hx Endocrine Disorders: No - HEMATOLOGICAL/ONCOLOGICAL Hx Blood Disorders: No - INTEGUMENTARY Hx Dermatological Problems: No - MUSCULOSKELETAL/RHEUMATOLOGICAL Hx Musculoskeletal Disorders: Yes Hx Falls: Yes (05-04-17) - GASTROINTESTINAL Hx Gastrointestinal Disorders: No - GENITOURINARY/GYNECOLOGICAL Hx Genitourinary Disorders: No - PSYCHIATRIC Hx Psychophysiologic Disorder: No Hx Substance Use: Yes (SMOKES MARIJUANA TOO) - SURGICAL HISTORY Hx Surgeries: No - ANESTHESIA Hx Anesthesia: No Meds Home Medications: Home Medication List Medication Instructions Recorded Confirmed Type Divalproex [Depakote DR(*BID*)] 500 mg PO BID #60 ect 10/05/17 Rx Allergies/Adverse Reactions: Allergies Allergy/AdvReac Type Severity Reaction Status Date / Time No Known Allergies Allergy Verified 10/04/17 18:14 - Medications Medications: Current Medications Acetaminophen (Tylenol 325mg Tab) 325 mg PO Q6H PRN PRN Reason: Fever >100.4 F Ceftriaxone Sodium (Rocephin 2 Gm Ivpb) 2 gm in 100 mls @ 100 mls/hr IVPB DAILY GABY PRN Reason: Protocol Last Admin: 10/05/17 09:32 Dose: 100 mls/hr Vancomycin HCl (Vancomycin 1gm) 1 gm in 250 mls @ 167 mls/hr IVPB Q12H GABY PRN Reason: Protocol Last Admin: 10/05/17 09:32 Dose: 167 mls/hr Levetiracetam (Keppra) 500 mg PO BID [facility] Last Admin: 10/05/17 09:32 Dose: 500 mg Pantoprazole Sodium (Protonix Ec Tab) 40 mg PO 0600 [facility] Last Admin: 10/05/17 06:05 Dose: 40 mg Physical Exam - Constitutional Appears: Non-toxic, No Acute Distress - Head Exam Head Exam: NORMAL INSPECTION - ENT Exam ENT Exam: Mucous Membranes Moist - Neck Exam Neck exam: Negative for: Lymphadenopathy, Meningismus - Respiratory Exam Respiratory Exam: absent: Rales - Cardiovascular Exam Cardiovascular Exam: +S1, +S2 - GI/Abdominal Exam GI & Abdominal Exam: Soft. absent: Tenderness Results - Vital Signs Recent Vital Signs: Last Vital Signs Temp 99.0 F 10/05/17 07:15 Pulse 81 10/05/17 07:15 Resp 20 10/05/17 07:15 BP 126/82 10/05/17 07:15 Pulse Ox 96 10/05/17 07:15 - Labs Result Diagrams: 10/05/17 05:45 10/05/17 05:30 Labs: Laboratory Results - last 24 hr 10/04/17 10/05/17 10/05/17 18:50 05:30 05:45 WBC 16.4 H D RBC 4.33 Hgb 12.1 L D Hct 37.3 L MCV 86.1 MCH 27.9 MCHC 32.4 RDW 12.4 Plt Count 208 MPV 9.1 Gran % 89.8 H Lymph % (Auto) 4.6 L [place] % (Auto) 4.9 Eos % (Auto) 0.5 L Baso % (Auto) 0.2 Gran # 14.72 H Lymph # (Auto) 0.8 L [place] # (Auto) 0.8 H Eos # (Auto) 0.1 Baso # (Auto) 0.03 ESR 45 H Sodium 137 Potassium 3.8 Chloride 104 Carbon Dioxide 24 Anion Gap 14 BUN 9 Creatinine 0.7 L Est GFR ( Amer) > 60 Est GFR (Non-Af Amer) > 60 Random Glucose 140 H Calcium 8.5 Total Bilirubin 0.5 AST 39 ALT 38 Alkaline Phosphatase 89 Total Protein 6.8 Albumin 3.6 Globulin 3.3 Albumin/Globulin Ratio 1.1 Assessment & Plan - Assessment and Plan (Free Text) Plan: Assessment Systemic Inflammatory response syndrome, consider due to seizure episode with post-ictal state, no physical signs of meningitis seizure disorder HTN COPD Plan Was started on Vancomycin and Rocephin but blood cx are negative; reviewed CT head with contrast which is negative - may d/c antibiotics and observe Neurology to manage seizures HIV test is non-reactive
--- NOTE | 2017-10-05 22:43 | CP.PCM.CON ---
History of Present Illness - History of Present Illness History of Present Illness: Uday Armenta PGY2 Neurology Consult Note for Dr. Boyd Mr. Harding is a 52-year-old -Tog[place] male with a PMH of seizure disorder (not on medication), HTN and COPD who presented to the ED with headaches and dizziness. The patient is noncompliant with his medications, and last known seizure was about 3.5 months ago. The patient is on house arrest but does not state why, ankle bracelet on the right ankle. Patient states that he woke up this morning with a headache, took 2 Tylenol pills and only recalls waking up in the ambulance. He states that he had little sleep last night due to a alliance party with several friends. The patient denies any alcohol or drug use, but does state that he smokes tobacco and marijuana. The patient does not recall the events of his first seizure. And denies any preceding or subsequent aura, tongue biting, loss of urinary/bowel control, vision or auditory changes. He cannot recall the events of the seizure, but per H&P, the patient's brother witnessed a seizure and stated it lasted for 2 minutes. In ED, the patient was given vancomycin, Rocephin, Reglan and Keppra 1000 mg. When evaluated, the patient is neurologically asymptomatic, and denies any neck rigidity, neck pain or neck decreased R OM, fevers/chills, coughheadaches/ dizziness, motor or sensory weakness or changes, changes in vision/hearing or any chest pain or shortness of breath. 12 point ROS was reviewed and is otherwise unremarkable. Review of Systems - Review of Systems All systems: reviewed and no additional remarkable complaints except (as per HPI ) Past Patient History - Past Social History Smoking Status: Light Smoker < 10 Cigarettes Daily Alcohol: None Drugs: Cannabis Home Situation {Lives}: With Family - CARDIAC Hx Cardiac Disorders: Yes Hx Hypertension: Yes - PULMONARY Hx Respiratory Disorders: Yes (SMOKES CIGARETTES AND MARIJUANA) Hx Chronic Obstructive Pulmonary Disease (COPD): Yes - NEUROLOGICAL Hx Neurological Disorder: Yes Hx Seizures: Yes - RENAL Hx Chronic Kidney Disease: No - ENDOCRINE/METABOLIC Hx Endocrine Disorders: No - HEMATOLOGICAL/ONCOLOGICAL Hx Blood Disorders: No - INTEGUMENTARY Hx Dermatological Problems: No - MUSCULOSKELETAL/RHEUMATOLOGICAL Hx Musculoskeletal Disorders: Yes Hx Falls: Yes (05-04-17) - GASTROINTESTINAL Hx Gastrointestinal Disorders: No - GENITOURINARY/GYNECOLOGICAL Hx Genitourinary Disorders: No - PSYCHIATRIC Hx Psychophysiologic Disorder: No Hx Substance Use: Yes (SMOKES MARIJUANA TOO) - SURGICAL HISTORY Hx Surgeries: No - ANESTHESIA Hx Anesthesia: No Meds Home Medications: Home Medication List Medication Instructions Recorded Confirmed Type Divalproex [Depakote DR(*BID*)] 500 mg PO BID #60 ect 10/05/17 Rx Allergies/Adverse Reactions: Allergies Allergy/AdvReac Type Severity Reaction Status Date / Time No Known Allergies Allergy Verified 10/04/17 18:14 Physical Exam - Constitutional Appears: Well, Non-toxic, No Acute Distress - Head Exam Head Exam: NORMAL INSPECTION - Eye Exam Eye Exam: Normal appearance, PERRL - ENT Exam ENT Exam: Mucous Membranes Moist - Neck Exam Neck exam: Negative for: Meningismus - Respiratory Exam Respiratory Exam: NORMAL BREATHING PATTERN - Cardiovascular Exam Cardiovascular Exam: RRR - GI/Abdominal Exam GI & Abdominal Exam: Soft. absent: Tenderness - Extremities Exam Extremities exam: Positive for: normal inspection - Back Exam Back exam: NORMAL INSPECTION - Neurological Exam Neurological exam: Alert, CN II-XII Intact, Oriented x3, Reflexes Normal - Psychiatric Exam Psychiatric exam: Normal Mood - Skin Skin Exam: Warm Results - Vital Signs Recent Vital Signs: Last Vital Signs Temp 98.4 F 10/05/17 16:22 Pulse 64 10/05/17 16:22 Resp 20 10/05/17 16:22 BP 123/79 10/05/17 16:22 Pulse Ox 97 10/05/17 16:22 - Labs Result Diagrams: 10/05/17 05:45 10/05/17 05:30 Labs: Laboratory Results - last 24 hr 10/04/17 10/04/17 10/05/17 18:50 18:50 05:30 WBC RBC Hgb Hct MCV MCH MCHC RDW Plt Count MPV Gran % Lymph % (Auto) [place] % (Auto) Eos % (Auto) Baso % (Auto) Gran # Lymph # (Auto) [place] # (Auto) Eos # (Auto) Baso # (Auto) Sodium 137 Potassium 3.8 Chloride 104 Carbon Dioxide 24 Anion Gap 14 BUN 9 Creatinine 0.7 L Est GFR ( Amer) > 60 Est GFR (Non-Af Amer) > 60 Random Glucose 140 H Calcium 8.5 Total Bilirubin 0.5 AST 39 ALT 38 Alkaline Phosphatase 89 Total Protein 6.8 Albumin 3.6 Globulin 3.3 Albumin/Globulin Ratio 1.1 Procalcitonin 4.43 H RPR HIV 1&2 Antibody Screen Negative 10/05/17 10/05/17 05:45 11:00 WBC 16.4 H D RBC 4.33 Hgb 12.1 L D Hct 37.3 L MCV 86.1 MCH 27.9 MCHC 32.4 RDW 12.4 Plt Count 208 MPV 9.1 Gran % 89.8 H Lymph % (Auto) 4.6 L [place] % (Auto) 4.9 Eos % (Auto) 0.5 L Baso % (Auto) 0.2 Gran # 14.72 H Lymph # (Auto) 0.8 L [place] # (Auto) 0.8 H Eos # (Auto) 0.1 Baso # (Auto) 0.03 Sodium Potassium Chloride Carbon Dioxide Anion Gap BUN Creatinine Est GFR ( Amer) Est GFR (Non-Af Amer) Random Glucose Calcium Total Bilirubin AST ALT Alkaline Phosphatase Total Protein Albumin Globulin Albumin/Globulin Ratio Procalcitonin RPR Nonreactive HIV 1&2 Antibody Screen Assessment & Plan - Assessment and Plan (Free Text) Assessment: 52-year-old -[place]og[place] male with a PMH of seizure disorder (not on medication), HTN and COPD who presented to the ED with headaches and dizziness. Symptoms likely due to seizure with postictal state. Meningitis is unlikely given the nature of the presentation and resolution of symptoms. IV Depakote 1000 mg was administered, and patient should be on antiepileptic medications moving forward. Medication compliance was encouraged, and education provided. Given that this is the patient's second seizure episode within a few months, the DMV should be contacted and his license evaluated. Symptoms likely due to seizure with postictal state. Meningitis is unlikely given the nature of the presentation and resolution of symptoms. IV Depakote 1000 mg was administered, and patient should be on antiepileptic medications moving forward. Medication compliance was encouraged, and education provided. Given that this is the patient's second seizure episode within a few months, the DMV should be contacted and his license evaluated. Plan: - Continue Depakote as AED - EEG ordered - ID following, recs appreciated for the leukocytosis - DMV should be contacted regarding patient's second seizure for possible licensure suspension - Seizure precautions - Patient should follow-up with neurologist as outpatient, or Dr. Boyd in office if no neurologist - Medication compliance is to be encouraged - Patient should refrain from drug use and other medications that lower seizure threshold - Further recs per Dr. Boyd Case was reviewed and discussed with attending, Dr. Oliver Armenta PGY2
== END 2017-10-05 18:39 | disposition home or self-care (01) | DRG 101 ==
LOC: ED 10:22 → ERH 15:58 → 3RNO 18:40
PROVIDERS: ADMIT Internal Medicine; ATTEND Internal Medicine
DX: G40.909 Epilepsy, unspecified, not intractable, without status epilepticus (principal); R65.10 Systemic inflammatory response syndrome (SIRS) of non-infectious origin without acute organ dysfunction; J44.9 Chronic obstructive pulmonary disease, unspecified; I10 Essential (primary) hypertension; F12.90 Cannabis use, unspecified, uncomplicated; F17.210 Nicotine dependence, cigarettes, uncomplicated; Z91.14 Patient's other noncompliance with medication regimen